=== PATIENT | female | born 1940 | race Two or more races ===

== ENCOUNTER 2025-08-09 06:38 | Emergency (ER) | payer OTHER ==
[~2025-08-09] VITALS: Ht 154.9 cm; Wt 64.9 kg
[~2025-08-09 06:38] MED LIST: AVALIDE 150/12.1 TAB; GLUCOTROL10 MG
[2025-08-09] MEDS ORDERED: ONDANSETRON HCL 2 MG/ML VIAL ONE (07:10)
[2025-08-09] MEDS ORDERED: ONDANSETRON HCL 2 MG/ML VIAL IV ONE (07:15)
[2025-08-09] MEDS ORDERED: 0.9 % SODIUM CHLORIDE 1,000 ML IV ONE (07:15)
[2025-08-09] MEDS ORDERED: MORPHINE SULFATE 4 MG/ML CARTRIDGE IV ONE (07:15)
[2025-08-09 07:44] LABS: BASO % 0.2 % (0.1-1.2); EOS # 0.04 (0.04-0.54); EOS % 0.8 % (0.7-7.0); LYMPH # 0.52 (1.18-3.74); LYMPH % 10.6 % (19.3-53.1); MEAN PLATELET VOLUME 10.10 fl (9.4-12.4); MONO # 0.04 (0.24-0.82); MONO % 0.8 % (4.7-12.5); NEUT # 4.28 (1.56-6.13); NEUT % 87.0 % (34.0-71.1); RED CELL DISTRIBUTION WIDTH 12.6 % (11.6-14.4)
[2025-08-09 08:09] LABS: ALT/SGPT 37.0 U/L (12-78); AST/SGOT 34.0 U/L (15-37); BILIRUBIN TOTAL 0.86 mg/dL (0.3-1.2); BILIRUBIN,CONJUGATED 0.22 mg/dL (0.0-0.2); BUN CREA RATIO 26.0 (7.0-25.0); CREATININE SERUM 1.29 mg/dL (0.55-1.02); GFR 39.47; OSMOLALITY SERUM 289.0 MOSM/KG (275-295)
[2025-08-09 08:10] LABS: GLUCOSE FASTING 245.0 mg/dL (65-100)
[2025-08-09 08:53] LABS: URINE APPEARANCE Clear; URINE BACTERIA 2556.8 uL (0.0-1933); URINE BILIRRUBIN Negative (NEGATIVE); URINE BLOOD Small; URINE COLOR Yellow; URINE EPITHELIAL CELLS 4.4 uL (0.0-38.8); URINE KETONE Trace (NEGATIVE); URINE LEUKOCYTE Trace; URINE NITRATE Negative; URINE PROTEIN Trace (NEGATIVE); URINE RBC 22.8 uL (0.0-20.8); URINE UROBILINOGEN 0.2 E.U./dl; URINE WBC 76.8 uL (0.0-23.2)
[2025-08-09 09:00] LABS: URINE CAST 0.00 uL (0.0-1.40); URINE GLUCOSE 250 MG/DL (NEGATIVE)
[2025-08-09] MEDS ORDERED: INSULIN LISPRO 1,000 UNIT/10 ML UNITS SUBCUTANEO ONE ×2 (09:45→11:30)
[2025-08-09] MEDS ORDERED: CEFTRIAXONE SODIUM 2,000 MG VIAL IV ONE (11:15)
[2025-08-09] MEDS ORDERED: MORPHINE SULFATE 2 MG/ML SYRINGE IV ONE (11:15)
[2025-08-09] MEDS ORDERED: CEFTRIAXONE SODIUM 2,000 MG VIAL ONE (11:54)
== END 2025-08-09 14:47 | disposition designated cancer center or children's hospital (05) ==
LOC: ER 06:38
PROVIDERS: Emergency Medicine
DX: N23 Unspecified renal colic (principal); I10 Essential (primary) hypertension; E03.8 Other specified hypothyroidism; E11.9 Type 2 diabetes mellitus without complications; Z88.1 Allergy status to other antibiotic agents
CPT/HCPCS: 36415; 74176; 93005; 96365; 96366; 99285; J0696; J2270 ×2; J2405; J7030